=== PATIENT | male | born 1945 | race Caucasian/White ===

== ENCOUNTER → 2018-03-07 13:49 | Outpatient (CLI) | payer MEDICARE, OTHER, SELFPAY ==
--- NOTE | 2018-03-07 | DI.ECHO.S_ITS ---
[place] [facility] +---------+ : : [address] : : : : [id number] : : : : Phone: [phone] Echocardiogram Report + + :Name: CHITO LAM Study Date: 03/07/2018 Height: 71 in : :[facility] Exam Location: IS Weight: 167 lb : : Gender: Male BSA: 2.0 m2 : :: 1945 Age: 73 yrs BP: 120/65 mmHg: :Reason For Study: Complete Heart Block : :Ordering Physician: Dr. Mere Gautamformed By: Rachel Page : + + Interpretation Summary The left ventricle is normal in size. The ejection fraction is estimated to be 60-65%. The right ventricle is mildly dilated. The right ventricular systolic function is normal. There is a pacemaker lead in the right ventricle. There is mild tricuspid regurgitation. Compared to the prior echo exam, there has been a decrease in TR severity. The right ventricular systolic pressure is estimated at 20 mmHg assuming a right atrial pressure of 3 mm Hg. Procedure: A two-dimensional transthoracic echocardiogram with color flow and Doppler was performed. The study quality was technically adequate. Comparison is made with the echocardiogram of 06/11/2012. The patient has a paced rhythm. Left Ventricle: The left ventricle is normal in size. Left ventricular wall thickness is normal. There is no thrombus. The ejection fraction is estimated to be 60-65%. There has been no significant change since the previous study. There is a mild dyssynchronous contraction pattern due to the paced rhythm. Assessment of diastolic parameters indicates a relaxation abnormality of the left ventricle, consistent with normal filling pressures. Right Ventricle: The right ventricle is mildly dilated. There is a pacemaker lead in the right ventricle. The right ventricular systolic function is normal. Atria: The left atrium is mildly dilated. The left atrium has remained unchanged in size since the prior echo exam. Right atrial size is normal. There is no Doppler evidence for an interatrial shunt. Mitral Valve: The mitral valve leaflets are slightly calcified. There is trace mitral regurgitation. Aortic Valve: The aortic valve is trileaflet. The aortic valve opens well. The aortic valve is slightly calcified. There is no aortic valve stenosis. There is trace aortic regurgitation. Tricuspid Valve: The tricuspid valve is normal in structure and function. There is mild tricuspid regurgitation. Compared to the prior echo exam, there has been a decrease in TR severity. The right ventricular systolic pressure is estimated at 20 mmHg assuming a right atrial pressure of 3 mm Hg. Pulmonic Valve: The pulmonic valve is not well visualized. There is trace pulmonic regurgitation. Great Vessels: The aortic root is normal size. The ascending aorta is mildly enlarged. The aortic arch could not be visualized. The pulmonary artery is normal size. The IVC is of normal diameter and collapses greater than 50% with a sniff. This suggests a low right atrial pressure of 3 mm Hg. Pericardium/ Pleura There is no pericardial effusion. There is no pleural effusion. MMode/2D Measurements & Calculations LVIDd: 5.0 cm Ao root diam: 3.5 cm LVIDs: 3.1 cm asc Aorta Diam: 3.6 cm FS: 39.0 % EPSS: 0.45 cm IVSd: 0.86 cm LVPWd: 0.72 cm LV jarquin. diameter/BSA (cm/m^2): 2.6 LV sys. diameter/BSA (cm/m^2): 1.6 LA A2 area: 22.4 cm2 RA long axis: 5.4 cm LA A4 area: 21.5 cm2 RA area: 18.8 cm2 LA length (vol): 6.0 cm RA vol: 55.7 ml LA vol: 68.1 ml RA : 28.5 ml/m2 LA vol index: 34.9 ml/m2 IVC diam: 1.9 cm RVD1 (basal): 4.5 cm Doppler Measurements & Calculations Ao V2 max: 142.5 cm/sec LVOT Max Manny: 95.8 cm/sec Ao V2 mean: 96.0 cm/sec LV V1 max P.7 mmHg Ao max P.1 mmHg LV V1 VTI: 17.0 cm Ao mean P.2 mmHg sev ratio: 0.68 Ao V2 VTI: 25.0 cm MV E max manyn: 49.4 cm/sec TR max manny: 204.8 cm/sec MV A max manny: 72.2 cm/sec TR max P.8 mmHg MV E/A: 0.68 PA V2 max: 84.1 cm/sec Med Peak E' Manny: 5.6 cm/sec PA V2 mean: 59.1 cm/sec E/E' med: 8.9 PA mean P.6 mmHg Lat Peak E' Manny: 7.8 cm/sec PA Accel Time: 0.13 sec E/E' lat: 6.3 E/e' average: 7.6 MV dec time: 0.18 sec MV P1/2t: 52.9 msec MV P1/2t max manny: 49.1 cm/sec MVA(2t): 4.2 cm2 Reading Physician:DANIEL
== END ==
PROVIDERS: PCP Family Medicine; Visit Provider Internal Medicine Cardiovascular Disease
DX: I44.2 Atrioventricular block, complete (principal); I07.1 Rheumatic tricuspid insufficiency; Z95.0 Presence of cardiac pacemaker
CPT/HCPCS: 93306

== ENCOUNTER → 2019-01-16 09:09 | Outpatient (CLI) | payer MEDICARE, OTHER, SELFPAY ==
--- NOTE | 2019-01-16 | DI.CT.S_ITS ---
PROCEDURE: CT CERVICAL SPINE WO CON INDICATIONS: CEREBROCASCULAR ACCIDENT TECHNIQUE: Noncontrast 3 mm thick sections acquired from the skull base to the T4 level. Sagittal and coronal reformats were then constructed. For radiation dose reduction, the following was used: automated exposure control, adjustment of mA and/or kV according to patient size. COMPARISON: None. FINDINGS: Image quality: Excellent. Bones: No fractures or dislocations. Visualized superior ribs are intact. Straightening of the normal cervical lordosis. Diffuse osteopenia. Multilevel degenerative endplate sclerosis and spurring. Diffuse facet arthropathy. Moderate narrowing of the C6-C7 and C7-T1 disc spaces. Mild narrowing of the C2-C3 disc space. Carotid atherosclerotic plaques incidentally noted. Chronic ossification seen in the posterior paraspinal soft tissues at the level of C5-C6. Upper thoracic discogenic change is also noted. Soft tissues: Prevertebral soft tissues are normal in thickness. No paravertebral hematomas. No apical pneumothoraces. IMPRESSION: No fracture. Chronic degenerative changes as above. Carotid atherosclerotic disease. Dictated by: Osmel Calloway M.D. on 01/16/2019 at 10:07 Approved by: Osmel Calloway M.D. on 01/16/2019 at 10:13
--- NOTE | 2019-01-16 09:17 | DI.CT.S_ITS ---
PROCEDURE: CT HEAD/BRAIN WO CON INDICATIONS: CEREBROCASCULAR ACCIDENT TECHNIQUE: Noncontrast 4.5 mm thick angled axial sections acquired from the foramen magnum to the vertex, with coronal and sagittal reformats. For radiation dose reduction, the following was used: automated exposure control, adjustment of mA and/or kV according to patient size. COMPARISON: [facility], , C-SPINE WITHOUT CONTRAST, 08/26/2010, 17:59. FINDINGS: Image quality: Excellent. CSF spaces: Basal cisterns are patent. No extra-axial fluid collections. The lateral ventricles are enlarged however this could be ex vacuo appearance given the prominence of the sylvian fissures, recommend clinical correlation given the absence of prior head CT. Brain: No intracranial bleeds or masses. There is cerebral volume loss for age, with resultant ventricular and sulcal prominence. There are periventricular and deep white matter chronic small vessel ischemic changes. There is intracranial internal carotid artery atherosclerosis. Skull and face: Calvarium and visualized facial bones appear intact, without suspicious lesions. Sinuses: Near-complete opacification of the left maxillary sinus. There is also right maxillary sinus disease. Bilateral ethmoid air cell opacification. Mastoids clear.. IMPRESSION: Enlargement of the lateral ventricles likely due to ex vacuo changes although given the absence of any prior head CT recommend clinical correlation. Elsewhere no acute intracranial process. Bilateral maxillary and ethmoid air cell sinus disease. Areas of increased attenuation seen within the left maxillary antrum raise the possibility of fungal etiology. Please correlate clinically and if necessary ENT consultation. Chronic senescent changes as above. Dictated by: Osmel Calloway M.D. on 01/16/2019 at 10:14 Approved by: Osmel Calloway M.D. on 01/16/2019 at 10:23
== END ==
PROVIDERS: PCP Internal Medicine; Visit Provider Internal Medicine
DX: I63.9 Cerebral infarction, unspecified (principal); J32.8 Other chronic sinusitis; I65.29 Occlusion and stenosis of unspecified carotid artery; M47.812 Spondylosis without myelopathy or radiculopathy, cervical region
CPT/HCPCS: 70450; 72125

== ENCOUNTER → 2019-01-28 15:18 | Outpatient (CLI) | payer MEDICARE, OTHER, SELFPAY ==
--- NOTE | 2019-01-28 | DI.RAD.S_ITS ---
PROCEDURE: XR HIP W PEL IF DONE BILAT 2V INDICATIONS: Right HIP PAIN TECHNIQUE: AP pelvis with lateral view(s) of the bilateral hip(s). COMPARISON: None. FINDINGS: Bones: No fractures or dislocations. Pelvic ring appears intact. No suspicious bony lesions. Soft tissues: The visualized bowel gas pattern is normal. Minor enthesopathy at the right greater trochanter. No suspicious soft tissue calcifications. IMPRESSION: Slight calcification of the right greater trochanter may indicate calcific tendinitis. Otherwise normal bilateral hips. Dictated by: Shital Scales M.D. on 01/28/2019 at 16:59 Approved by: Shital Scales M.D. on 01/28/2019 at 17:00
== END ==
PROVIDERS: PCP Internal Medicine; Visit Provider Internal Medicine
DX: M25.551 Pain in right hip (principal)
CPT/HCPCS: 73521

== ENCOUNTER 2019-04-17 06:51 | Day surgery (SDC) | payer MEDICARE, OTHER, SELFPAY ==
[2019-04-17] VITALS (7 sets, daily range): BP systolic 85–117; BP diastolic 52–81; PULSE 18–66; RESP 10–16; TEMP 36.4–36.7; O2SAT 89–99; BMI 25.1
--- NOTE | 2019-04-17 | PATH_ITS ---
[facility] Accession Number: [id number] . 01 Material submitted: . PART A: cecum - CECAL POLYP BIOPSY PART B: sigmoid colon - SIGMOID POLYP BIOPSY . 02 Diagnosis: A. Biopsy, Cecal Polyp: Sessile serrated adenoma. . B. Biopsy, Sigmoid Colon Polyp: Mixed tubular and villiform adenoma involving both biopsy fragments. MRV/04/18/2019 . 02 Electronically signed: . Jamal Rogers MD, Pathologist NPI- [id number] . 01 Gross description: . Part A: CECAL POLYP BIOPSY: Received in formalin is 1 fragment(s) of sharpe, soft tissue measuring 0.3 x 0.2 x 0.2 cm which is entirely submitted and submitted entirely in 1 cassette(s) Part B: SIGMOID POLYP BIOPSY: Received in formalin are 2 fragment(s) of sharpe, soft tissue measuring 0.2 x 0.2 x 0.2 cm to 0.3 x 0.3 x 0.2 cm which is entirely submitted and submitted entirely in 1 cassette(s) /DMC /DMC . 02 Pathologist provided ICD-10: D12.0 . 02 CPT . 116208, [id number] Performed at: 01 [facility] [address], [place], [place] [id number] MD Pino Pearson MD Phone: [phone] Performed at: 02 [facility] [address] [place], [place] [id number] MD Jasmin Collier MD Phone: [phone]
[2019-04-17] MEDS: SODIUM CHLORIDE 0.9% 1,000 ML 100 ML IV (07:20)
--- NOTE | 2019-04-17 08:48 | PM.HP.1 ---
History of Present Illness Date Patient Seen: 04/17/19 Time Patient Seen: 08:48 Chief complaint: [id number] Narrative: History of colon polyps Patient History Family & Social History Social History: household members spouse Tobacco & Substance use: Smoking Status Never smoker Meds Home Medications Medication Instructions Recorded Confirmed Type tamsulosin 0.4 mg capsule 0.4 mg PO QDAY #90 cap 07/30/18 04/17/19 Rx simvastatin 40 mg tablet 20 mg PO QPM tab 01/05/19 04/17/19 History Allergies Allergy/AdvReac Type Severity Reaction Status Date / Time No Known Allergies Allergy Mild Uncoded 04/17/19 07:01 Exam Vital Signs (past 8 hours): - 04/17/19 07:13 Temperature 98.1 F Pulse Rate 62 Respiratory Rate 15 Blood Pressure 117/81 Pulse Oximetry 94 Oxygen Delivery Method Room Air Narrative Exam Narrative: Oropharynx free of lesions Chest clear to auscultation percussion Cardiac exam reveals no S3 or murmur Assessment & Plan Assessment & Plan narrative: History of colon polyps and family history of colon cancer in a daughter in her 40s who from colorectal cancer, Need for follow-up colonoscopy Risks, benefits, alternatives have been explained. Patient left colonoscopy set up today.
--- NOTE | 2019-04-17 08:49 | PM.OP.ENDO ---
Operative Date/Time/Diagnoses Date of procedure: 04/17/19 Time of procedure: 08:50 Pre-op diagnosis: Personal history of colon polyps and family history of colon cancer in a daughter in her 40s Procedure & Clinicians Study performed: Colonoscopy Same procedure as scheduled: Yes Indications: Personal history of colon polyps and family history of colon cancer in daughter age 40s Surgeon: Fatoumata Henriquez Procedure Notes Procedure in detail: After informed consent was obtained the patient was placed in left lateral decubitus position. The video colonoscope was introduced the rectum and slowly advanced to cecum. Preparation was good. On slow withdrawal mucosa was carefully examined. The scope was removed. The patient tolerated the procedure well Blood loss none Complications none Sedation Total sedation time 23 minutes Versed 4 mg fentanyl 100 mg IV titration Findings 1. 4 mm cecal polyp Jumbo biopsy removed completely 2. 8 mm semi pedunculated polyp in the sigmoid colon snared and removed completely 3. Otherwise negative colonoscopy to cecum Patient will need follow-up colonoscopy in 5 years.
[2019-04-17] MEDS: MIDAZOLAM 5 MG/5 ML VIAL IV (08:50)
[2019-04-17] MEDS: fentaNYL 250 MCG/5 ML INJ IV (08:51)
== END 2019-04-17 10:08 | disposition home or self-care (01) ==
PROVIDERS: PCP Internal Medicine; Visit Provider Internal Medicine Gastroenterology
PROC: 0DJD8ZZ Inspection of Lower Intestinal Tract, Via Natural or Artificial Opening Endoscopic (ICD-10-PCS; CPT 45378; principal; 2019-04-17 08:30)
DX: Z86.010 Personal history of colon polyps (principal); Z80.0 Family history of malignant neoplasm of digestive organs; D12.0 Benign neoplasm of cecum
CPT/HCPCS: 45380; 88305; J2250; J3010

== ENCOUNTER → 2020-01-28 07:06 | Outpatient (CLI) | payer MEDICARE, OTHER, SELFPAY ==
[2020-01-28 08:04] LABS: Aspartate Aminotransferase 29 IU/L (17-59); BUN Creatinine Ratio 24.7 (6-22); Blood Urea Nitrogen 19 mg/dL (9-20); Calcium 9.4 mg/dL (8.4-10.2); Carbon Dioxide 27 mmol/L (22-32); Chloride 105 mmol/L (98-107); Cholesterol 189 mg/dL (140-199); Estimated Glomerular Filt Rate > 60.0 mL/min (>60); Glucose 110 mg/dL (80-110); HDL Cholesterol 48 mg/dL (40-60); HEMOLYSIS < 15 (0-50); LDL Cholesterol Calculated 111 mg/dL (<100); Potassium 4.3 mmol/L (3.4-5.1); Sodium 139 mmol/L (137-145); Triglycerides 150 mg/dL (35-150)
[2020-01-28 08:34] LABS: Prostate Specific Antigen Scrn 1.51 ng/mL (0.1-4.0)
== END ==
PROVIDERS: PCP Internal Medicine; Referring Provider Internal Medicine; Visit Provider Internal Medicine
DX: N40.1 Benign prostatic hyperplasia with lower urinary tract symptoms (principal); E78.2 Mixed hyperlipidemia
CPT/HCPCS: 36415; 80048; 80061; 84450; G0103

== ENCOUNTER → 2020-06-16 14:35 | Outpatient (CLI) | payer MEDICARE, OTHER, SELFPAY ==
--- NOTE | 2020-06-16 | DI.CT.S_ITS ---
PROCEDURE: CT HEAD/BRAIN WO CON INDICATIONS: PRESENCE OF CEREBROSPINAL FLUID DRAINAGE DEVICE TECHNIQUE: Noncontrast 4.5 mm thick angled axial sections acquired from the foramen magnum to the vertex, with coronal and sagittal reformats. For radiation dose reduction, the following was used: automated exposure control, adjustment of mA and/or kV according to patient size. COMPARISON: [facility], CT, CT HEAD/BRAIN WO CON, 01/16/2019, 9:25. [facility], [place] CSF CISTERNOGRAM, 02/04/2019, 13:04. FINDINGS: Image quality: Excellent. CSF spaces: A right frontal approach ventriculostomy catheter has been placed. The tip is seen within the 3rd ventricle. The lateral ventricles are again seen to be abnormally prominent, right slightly larger than left. The size and shape of the ventricles is not significantly changed compared to the 01/16/2019 examination. Basal cisterns are patent. No extra-axial fluid collections. Brain: No intracranial bleeds or masses. There is cerebral volume loss for age, with resultant ventricular and sulcal prominence. There are periventricular and deep white matter chronic small vessel ischemic changes. There is intracranial internal carotid artery atherosclerosis. Skull and face: Calvarium and visualized facial bones appear intact, without suspicious lesions. Sinuses: Moderate mucosal thickening is seen within the ethmoid air cells. Moderate mucosal thickening is seen within the left maxillary sinus. Paranasal sinus disease is clearly improved compared to the prior examination. No abnormal fluid is seen within the mastoid air cells. IMPRESSION: Interval placement of a right frontal approach ventriculostomy catheter, with the tip within the 3rd ventricle. The size and shape of the lateral ventricles are not significantly changed compared to the preoperative CT. Improved paranasal sinus disease is noted. Dictated by: Jigar Flores M.D. on 06/16/2020 at 14:00 Approved by: Jigar Flores M.D. on 06/16/2020 at 14:03
== END ==
PROVIDERS: PCP Internal Medicine; Referring Provider Physician Assistant; Visit Provider Physician Assistant
DX: Z45.41 Encounter for adjustment and management of cerebrospinal fluid drainage device (principal); Z98.2 Presence of cerebrospinal fluid drainage device; I65.29 Occlusion and stenosis of unspecified carotid artery
CPT/HCPCS: 70450

== ENCOUNTER → 2020-09-23 08:02 | Outpatient (CLI) | payer MEDICARE, OTHER, SELFPAY ==
--- NOTE | 2020-09-23 08:28 | DI.CT.S_ITS ---
PROCEDURE: CT HEAD/BRAIN WO CON INDICATIONS: (Idiopathic) normal pressure hydrocephalus TECHNIQUE: Noncontrast 4.5 mm thick angled axial sections acquired from the foramen magnum to the vertex, with coronal and sagittal reformats. For radiation dose reduction, the following was used: automated exposure control, adjustment of mA and/or kV according to patient size. COMPARISON: [facility], CT, CT HEAD/BRAIN WO CON, 06/16/2020, 14:42. FINDINGS: Image quality: Excellent. CSF spaces: A ventriculostomy catheter is again noted to enters through a right frontal defect and coarse to the region of the foramen of Monro. Ventricular size is unchanged with mild diffuse ventriculomegaly, asymmetrically larger on the right than the left. Basal cisterns are patent. No extra-axial fluid collections. Brain: No intracranial bleeds or masses. There is cerebral volume loss for age, with resultant ventricular and sulcal prominence. There are moderate periventricular and deep white matter chronic small vessel ischemic changes. There is intracranial internal carotid artery atherosclerosis. Skull and face: Calvarium and visualized facial bones appear intact, without suspicious lesions. Sinuses: Continue to subtotal opacification of the ethmoids. Suspect possible bilateral nasal polyps. Bilateral maxillary sinus mucosal thickening and left maxillary sinus mucous retention cyst. IMPRESSION: 1. Unchanged appearance of ventriculostomy catheter. Unchanged asymmetric mild ventriculomegaly. 2. Age-related volume loss and moderate small vessel ischemic change. 3. No evidence acute stroke, hemorrhage, or mass. 4. Unchanged subtotal opacification of the ethmoids. Suspect underlying nasal polyps. Dictated by: Manav Garcia M.D. on 09/23/2020 at 9:26 Approved by: Manav Garcia M.D. on 09/23/2020 at 9:33
== END ==
PROVIDERS: PCP Internal Medicine; Referring Provider Internal Medicine; Visit Provider Psychiatry & Neurology Neurology
DX: G91.2 (Idiopathic) normal pressure hydrocephalus (principal); Z98.2 Presence of cerebrospinal fluid drainage device
CPT/HCPCS: 70450

== ENCOUNTER → 2020-12-18 07:37 | Outpatient (CLI) | payer MEDICARE, OTHER, SELFPAY ==
[2020-12-18 09:50] LABS: Aspartate Aminotransferase 35 IU/L (17-59); BUN Creatinine Ratio 23.8 (6-22); Blood Urea Nitrogen 20 mg/dL (9-20); Calcium 9.5 mg/dL (8.4-10.2); Carbon Dioxide 26 mmol/L (22-32); Chloride 103 mmol/L (98-107); Cholesterol 159 mg/dL (140-199); Estimated Glomerular Filt Rate > 60.0 mL/min (>60); Glucose 106 mg/dL (80-110); HDL Cholesterol 50 mg/dL (40-60); HEMOLYSIS < 15 (0-50); LDL Cholesterol Calculated 77 mg/dL (<100); Potassium 4.1 mmol/L (3.4-5.1); Sodium 138 mmol/L (137-145); Triglycerides 161 mg/dL (35-150)
[2020-12-18 10:19] LABS: Prostate Specific Antigen 1.42 ng/mL (0.10-4.00)
== END ==
PROVIDERS: PCP Internal Medicine; Referring Provider Internal Medicine; Visit Provider Internal Medicine
DX: N40.1 Benign prostatic hyperplasia with lower urinary tract symptoms (principal); E78.2 Mixed hyperlipidemia
CPT/HCPCS: 36415; 80048; 80061; 84153; 84450

== ENCOUNTER → 2021-02-01 19:51 | Outpatient (ROUT) | payer MEDICARE, OTHER, SELFPAY ==
[2021-02-01 21:33] LABS: TSH w/ Reflex to FT4 1.22 uIU/mL (0.47-4.68)
[2021-02-02 06:52] LABS: Hemoglobin A1C% w Est Avg Glu 5.7 % (4.0-6.0)
[2021-02-03 10:32] LABS: Var-Zoster Immunity Screen 1169 index (Immune >165)
== END ==
PROVIDERS: PCP Internal Medicine; Visit Provider Internal Medicine
DX: Z20.9 Contact with and (suspected) exposure to unspecified communicable disease (principal); E03.9 Hypothyroidism, unspecified; R73.01 Impaired fasting glucose
CPT/HCPCS: 83036; 84443; 86787

== ENCOUNTER → 2022-01-06 12:02 | Outpatient (CLI) | payer MEDICARE, OTHER, SELFPAY ==
[2022-01-06 13:01] LABS: Add Manual Diff / Slide Review NO; Basophils Absolute Auto 0 /uL (0-100); Basophils Percent Auto 0.5 % (0-2); Eosinophils Absolute Auto 400 /uL (0-450); Eosinophils Percent Auto 5.8 % (2-4); Hematocrit 45.7 % (41-53); Hemoglobin 15.6 g/dL (13.5-17.5); Lymphocytes Absolute Auto 2000 /uL (1100-4500); Lymphocytes Percent Auto 29.3 % (25-40); Mean Corpuscular HGB Conc 34.1 % (30-36); Mean Corpuscular Hemoglobin 30.4 PG (26-34); Mean Corpuscular Volume 89.3 fL (80-100); Monocytes Absolute Auto 900 /uL (0-900); Monocytes Percent Auto 13.5 % (3-14); Neutrophils Absolute Auto 3500 /uL (1500-7000); Neutrophils Percent Auto 50.9 % (50-75); Platelet Count 170 X10^3/uL (150-400); Red Blood Cell Count 5.12 X10^6/uL (4.5-5.9); Red Cell Distribution Width 12.9 % (11.6-14.8); White Blood Cell Count 6.9 X10^3/uL (4.5-11.0)
[2022-01-06 13:27] LABS: Alanine Aminotransferase 33 IU/L (<50); Albumin 4.8 g/dL (3.5-5.0); Albumin Globulin Ratio 1.6 (1.0-2.8); Alkaline Phosphatase 68 U/L (38-126); Aspartate Aminotransferase 36 IU/L (17-59); BUN Creatinine Ratio 23.6 (6-22); Bilirubin Total 0.6 mg/dL (0.2-1.3); Blood Urea Nitrogen 21 mg/dL (9-20); Carbon Dioxide 31 mmol/L (22-32); Chloride 103 mmol/L (98-107); Cholesterol 173 mg/dL (140-199); Estimated Glomerular Filt Rate > 60 mL/min (>60); Glucose 96 mg/dL (80-110); HDL Cholesterol 58 mg/dL (40-60); HEMOLYSIS < 15 (0-50); LDL Cholesterol Calculated 82 mg/dL (<100); Potassium 4.3 mmol/L (3.4-5.1); Sodium 138 mmol/L (137-145); Total Protein 7.8 g/dL (6.3-8.2); Triglycerides 165 mg/dL (35-150)
[2022-01-06 13:50] LABS: Prostate Specific Antigen 1.59 ng/mL (0.10-4.00)
[2022-01-06 13:51] LABS: TSH w/ Reflex to FT4 1.82 uIU/mL (0.47-4.68)
== END ==
PROVIDERS: PCP Internal Medicine; Referring Provider Internal Medicine; Visit Provider Internal Medicine
DX: E78.2 Mixed hyperlipidemia (principal); N40.1 Benign prostatic hyperplasia with lower urinary tract symptoms; G91.2 (Idiopathic) normal pressure hydrocephalus
CPT/HCPCS: 36415; 80053; 80061; 84153; 84443; 85025

== ENCOUNTER 2022-11-24 09:29 | Emergency (ER) | payer MEDICARE, OTHER, SELFPAY ==
--- NOTE | 2022-11-24 09:37 | DI.RAD.S_ITS ---
PROCEDURE: XR KNEE LT 4V INDICATIONS: knee pain TECHNIQUE: 3 views of the knee were acquired. COMPARISON: None. FINDINGS: Bones: Postoperative changes of unicondylar medial joint space arthroplasty without complication. No fractures or dislocations. No suspicious bony lesions. Soft tissues: No joint effusion. No suspicious soft tissue calcifications. IMPRESSION: Unicondylar medial joint space arthroplasty without complication. Dictated by: Quentin Chaparro M.D. on 11/24/2022 at 10:11 Approved by: Quentin Chaparro M.D. on 11/24/2022 at 10:12
--- NOTE | 2022-11-24 09:38 | ED.GENADULT ---
HPI - General Adult General Chief complaint: Extremity Problem,Nontraumatic Stated complaint: can't walk at night T-30 LT knee hurts leg tired Time Seen by Provider: 11/24/22 09:33 History of Present Illness HPI narrative: 77-year-old male presenting with pain localized to the left knee that has been present for approximately 1 month. Patient does continue to be able to ambulate, however, patient reports pain localized to the anterior aspect of the left lower extremity that is immediately proximal to the left knee. No significant swelling noted. No trauma. No fevers or redness. Patient reports no significant change in his activity apart from decreasing is amount of walking secondary to pain over the last month. Related Data Previous Rx's Medication Instructions Recorded rosuvastatin 20 mg tablet (Crestor) 20 mg PO DAILY #90 tabs 05/16/22 Allergies Allergy/AdvReac Type Severity Reaction Status Date / Time No Known Drug Allergies Allergy Verified 11/24/22 09:42 Patient History Medical History Benign prostatic hyperplasia with lower urinary tract symptoms (09/06/16) BPH (benign prostatic hyperplasia) (Unknown) Encounter for general adult medical examination without abnormal findings History of colonic polyps Hyperlipidemia (Unknown) Kidney stones Mixed hyperlipidemia Neurological disease NPH (normal pressure hydrocephalus) Osteoarthritis of left hip Pacemaker (06/2012) Presence of cardiac pacemaker (07/07/15) Secondhand smoke exposure Surgical History H/O circumcision History of cystoscopy History of knee replacement History of liver biopsy History of partial knee replacement S/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 Nursing note reviewed Constitutional: interactive HENT: Moist mucous membranes EYES: No scleral icterus NECK: no masses CV: Well perfused peripherally, no cyanosis present PULM: Unlabored respirations, symmetric chest rise ABD: Non-distended MS: No gross deformities, no asymmetric edema noted, range of motion is nonirritable, no significant swelling noted, no erythema noted, patient is able to raise the leg off the bed without difficulty SKIN: Warm and dry. PSYCH: Appropriate affect NEURO: Follows simple commands, moves extremities, interactive with exam Initial Vital Signs Initial Vital Signs: Vital Signs Temperature 98.3 F 11/24/22 09:39 Pulse Rate 72 11/24/22 09:39 Respiratory Rate 16 11/24/22 09:39 Blood Pressure 168/73 H 11/24/22 09:39 Pulse Oximetry 98 11/24/22 09:39 Oxygen Delivery Method Room Air 11/24/22 09:39 Course Orders Ordered: ED Orders 11/24/22 09:37 XR knee LT 4V Stat Medical Decision Making [facility] Narrative Medical decision making narrative: 77-year-old male presenting with left knee pain that has been present for the last month. On presentation, vital signs reassuring. Physical exam notable for well-appearing 69-year-old male who is in no acute distress, reassuring cardiopulmonary exam, MSK exam notable for no evidence of irritability with range of motion, no gross deformities, no significant swelling or fluid. Initial concern for osteoarthritis, occult fracture, hardware malposition, ligamentous strain, ligament disruption, mass lesion. Patient has no evidence of septic arthritis on bedside exam or by history, further evaluation for this diagnosis was deferred. Patient has no evidence of complete tendon disruption given his ability to ambulate and raised leg off the bed, no evidence of trauma. X-ray obtained and notable for no evidence of acute pathology. Discussed findings with patient at bedside. Discussed plan for supportive cares and close outpatient follow up. Discussed further evaluation with MR imaging if symptoms do not resolve. Return precautions discussed. Discharge Plan Departure Patient Disposition: Home Clinical Impression: Acute knee pain Activity Restrictions/Additional Instructions: *You have been diagnosed with left knee pain *What to do: Please follow up in the outpatient setting with her primary care provider, as discussed, he will likely require additional imaging if you continue to have symptoms. *Please follow up with your primary care provider in 2-3 days, call for an appointment. Let them know you were seen in the Emergency Department and that we ask that you be seen in follow up. We will electronically transmit a record of today's note if your PCP is in our system. Prescriptions: No Action rosuvastatin [Crestor] 20 mg tablet 20 mg PO DAILY Qty: 90 2RF Referrals: Geoff Morrissey MD [Primary Care Provider] - Stand Alone Forms: Patient Portal/API
[2022-11-24 09:39] VITALS: BP 168/73; PULSE 72; RESP 16; TEMP 36.8; O2SAT 98; BMI 24.0
--- NOTE | 2022-11-24 10:17 | PC.NURSE ---
pt states he woke up with pain, was fine prior to bed the night before. has taken ibuprofen and voltaren gel which did help. pain gets worse through the day but is okay in the morning. call light placed within reach. explanation of waiting for imaging given to patient. encouraged to use call mccabe for any needs.
== END 2022-11-24 11:13 | disposition home or self-care (01) ==
PROVIDERS: Emergency Provider Emergency Medicine; PCP Internal Medicine
DX: M25.562 Pain in left knee (principal)
CPT/HCPCS: 73564; 99283

== ENCOUNTER → 2023-01-11 08:13 | Outpatient (CLI) | payer MEDICARE, OTHER, SELFPAY ==
[2023-01-11 09:16] LABS: Hematocrit 44.7 % (41-53); Hemoglobin 15.5 g/dL (13.5-17.5); Mean Corpuscular HGB Conc 34.7 % (30-36); Mean Corpuscular Hemoglobin 30.9 PG (26-34); Mean Corpuscular Volume 89.1 fL (80-100); Platelet Count 188 X10^3/uL (150-400); Red Blood Cell Count 5.01 X10^6/uL (4.5-5.9); Red Cell Distribution Width 12.8 % (11.6-14.8); White Blood Cell Count 7.5 X10^3/uL (4.5-11.0)
[2023-01-11 10:00] LABS: Alanine Aminotransferase 38 IU/L (<50); Albumin 4.4 g/dL (3.5-5.0); Albumin Globulin Ratio 1.5 (1.0-2.8); Alkaline Phosphatase 64 U/L (38-126); Aspartate Aminotransferase 39 IU/L (17-59); BUN Creatinine Ratio 24.4 (6-22); Blood Urea Nitrogen 21 mg/dL (9-20); Calcium 9.2 mg/dL (8.4-10.2); Carbon Dioxide 28 mmol/L (22-32); Chloride 102 mmol/L (98-107); Cholesterol 180 mg/dL (140-199); Estimated Glomerular Filt Rate > 60 mL/min (>60); Globulin 2.9 g/dL (1.7-4.1); Glucose 99 mg/dL (80-110); HDL Cholesterol 63 mg/dL (40-60); HEMOLYSIS < 15 (0-50); LDL Cholesterol Calculated 94 mg/dL (<100); Potassium 4.4 mmol/L (3.4-5.1); Sodium 138 mmol/L (137-145); Total Protein 7.3 g/dL (6.3-8.2); Triglycerides 117 mg/dL (35-150)
[2023-01-11 10:25] LABS: TSH w/ Reflex to FT4 1.97 uIU/mL (0.47-4.68)
[2023-01-11 10:26] LABS: Prostate Specific Antigen 1.92 ng/mL (0.10-4.00)
== END ==
PROVIDERS: PCP Internal Medicine; Referring Provider Internal Medicine; Visit Provider Internal Medicine
DX: E78.2 Mixed hyperlipidemia (principal); N40.1 Benign prostatic hyperplasia with lower urinary tract symptoms; Z95.0 Presence of cardiac pacemaker; I45.9 Conduction disorder, unspecified
CPT/HCPCS: 36415; 80053; 80061; 84153; 84443; 85027

== ENCOUNTER 2023-03-01 07:47 | Day surgery (SDC) | payer MEDICARE, OTHER, SELFPAY ==
[2023-03-01 08:15] VITALS: BP 143/75; PULSE 63; RESP 18; TEMP 36.2; O2SAT 96; BMI 25.1
[2023-03-01] MEDS: LACTATED RINGERS 1,000 ML 42 ML IV (08:32)
--- NOTE | 2023-03-01 08:34 | PM.HP.1 ---
History of Present Illness History of Present Illness Date Patient Seen: 03/01/23 Chief complaint: Colonoscopy Narrative: Personal history of colon polyps PFSH Medical History Benign prostatic hyperplasia with lower urinary tract symptoms (09/06/16) BPH (benign prostatic hyperplasia) (Unknown) Heart block History of colonic polyps Hyperlipidemia (Unknown) Kidney stones Mixed hyperlipidemia Neurological disease NPH (normal pressure hydrocephalus) Osteoarthritis of left hip Pacemaker (06/2012) Presence of cardiac pacemaker (07/07/15) Secondhand smoke exposure Surgical History H/O circumcision History of cystoscopy History of knee replacement History of liver biopsy History of partial knee replacement 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 Family History Father Myocardial infarction acute Social History marital status: number of children: 2 household members: spouse Smoking Status: Never smoker alcohol intake: current caffeine: Yes Meds Home Medications and Allergies Home Medications Medication Instructions Recorded Confirmed Type rosuvastatin 20 mg tablet (Crestor) 20 mg PO DAILY #90 tabs 01/09/23 03/01/23 Rx acetaminophen 325 mg capsule 650 mg PO Q6H PRN pain 03/01/23 03/01/23 History (Tylenol) Allergies Allergy/AdvReac Type Severity Reaction Status Date / Time No Known Drug Allergies Allergy Verified 03/01/23 08:12 Exam Vital Signs (past 8 hours): - 03/01/23 08:15 Temperature 97.1 F L Pulse Rate 63 Respiratory Rate 18 Blood Pressure 143/75 H Pulse Oximetry 96 Oxygen Delivery Method Room Air Oxygen Delivery Method Room Air Narrative Exam Narrative: Oropharynx free of lesions Chest clear to auscultation percussion Cardiac exam reveals no S3 or murmur Assessment & Plan Assessment & Plan narrative: Personal history of colon polyps need for follow-up colonoscopy. Risks, benefits, alternatives have been explained.
--- NOTE | 2023-03-01 08:35 | PM.OP.COLON ---
Operative Date/Time/Diagnoses Date of procedure: 03/01/23 Pre-op diagnosis: See indication and findings Procedure & Clinicians Study performed: Colonoscopy Indications: History of colon polyps Surgeon: Fatoumata Henriquez Procedure Notes Procedure in detail: After informed consent was obtained the patient was placed in left lateral decubitus position. The video colonoscope was introduced the rectum slowly advanced cecum. On slow withdrawal mucosa was carefully examined. The scope was removed. The patient tolerated procedure well. Preparation was good. Blood loss none Complications none Sedation mac Findings 1. Normal colonoscopy to cecum This should be Mr. Davalos please last colonoscopy. He will follow up routinely with primary care/cardiology
[2023-03-01 09:32] VITALS: BP 123/76; PULSE 62; RESP 17; TEMP 36.3; O2SAT 96
[2023-03-01 09:37] VITALS: BP 126/82; PULSE 61; RESP 10; TEMP 36.3; O2SAT 97
[2023-03-01 09:42] VITALS: BP 118/77; PULSE 67; RESP 16; TEMP 36.3; O2SAT 98
[2023-03-01 09:49] VITALS: BP 127/83; PULSE 61; RESP 14; TEMP 36.4; O2SAT 99
== END 2023-03-01 10:00 | disposition home or self-care (01) ==
PROVIDERS: PCP Internal Medicine; Referring Provider Internal Medicine Gastroenterology; Visit Provider Internal Medicine Gastroenterology
PROC: 0DJD8ZZ Inspection of Lower Intestinal Tract, Via Natural or Artificial Opening Endoscopic (ICD-10-PCS; CPT 45378; principal; 2023-03-01 09:00)
DX: Z12.11 Encounter for screening for malignant neoplasm of colon (principal); Z86.010 Personal history of colon polyps
CPT/HCPCS: G0105

== ENCOUNTER → 2023-05-08 10:39 | Outpatient (CLI) | payer MEDICARE, OTHER, SELFPAY ==
--- NOTE | 2023-05-08 10:40 | DI.NM.S_ITS ---
PROCEDURE: NM BONE SCAN WHOLE BODY RADIOPHARMACEUTICAL: 21.5 mCi Tc-99m MDP IV. INDICATIONS: ATYPICAL LEFT HIP PAIN TECHNIQUE: Delayed whole-body scintigrams were obtained approximately 3-4 hours after intravenous injection of radiotracer. Anterior and posterior views were acquired from vertex to feet. Additional left and right oblique views of the pelvis were obtained. COMPARISON: [facility] [place], [place], XR PELVIS WITH LATERAL HIP LEFT, 03/29/2023, 8:50. FINDINGS: Radiotracer excretion is seen in the urinary system. Scattered degenerative changes seen at the base of the thumb, right greater than left upper extremities, and bilateral lower extremities. Knee arthroplasty changes. Spine degenerative changes are also suspected to be present, particularly focal around L4-L5. IMPRESSION: Scattered suspected degenerative changes in the upper and lower extremities and spine, most focally at L4-L5. No pathologic asymmetric uptake of the left hip. Consider MRI to further evaluate the above findings if there is sufficient clinical concern. Dictated by: Kashif Fuentes M.D. on 05/08/2023 at 16:03 Approved by: Kashif Fuentes M.D. on 05/08/2023 at 16:07
== END ==
PROVIDERS: PCP Internal Medicine; Referring Provider Orthopaedic Surgery; Visit Provider Orthopaedic Surgery
DX: M16.12 Unilateral primary osteoarthritis, left hip (principal)
CPT/HCPCS: 78306; A9503

== ENCOUNTER → 2023-12-19 11:37 | Outpatient (CLI) | payer MEDICARE, OTHER, SELFPAY ==
[2023-12-19 12:48] LABS: Aspartate Aminotransferase 32 IU/L (17-59); BUN Creatinine Ratio 25.3 (6-22); Blood Urea Nitrogen 21 mg/dL (9-20); Calcium 9.8 mg/dL (8.4-10.2); Carbon Dioxide 29 mmol/L (22-32); Chloride 106 mmol/L (98-107); Cholesterol 184 mg/dL (140-199); Estimated Glomerular Filt Rate > 60 mL/min (>60); Glucose 76 mg/dL (80-110); HDL Cholesterol 72 mg/dL (40-60); HEMOLYSIS < 15 (0-50); LDL Cholesterol Calculated 75 mg/dL (<100); Potassium 4.8 mmol/L (3.4-5.1); Sodium 138 mmol/L (137-145); Triglycerides 184 mg/dL (35-150)
[2023-12-19 13:14] LABS: Prostate Specific Antigen 2.06 ng/mL (0.10-4.00)
== END ==
PROVIDERS: PCP Internal Medicine; Referring Provider Internal Medicine; Visit Provider Internal Medicine
DX: E78.2 Mixed hyperlipidemia (principal); N40.1 Benign prostatic hyperplasia with lower urinary tract symptoms; I45.9 Conduction disorder, unspecified
CPT/HCPCS: 36415; 80048; 80061; 84153; 84450

== ENCOUNTER 2024-02-29 13:00 | Outpatient (RCR) | payer MEDICARE, OTHER, SELFPAY ==
--- NOTE | 2024-01-22 16:00 | PT.OPPOC ---
Physical, Occupational & Speech Therapy At [facility] Current Diagnoses Other shoulder lesions, right shoulder (01/22/24) Abnormal posture (01/22/24) Weakness (01/22/24) Visit Care Team Role Provider Type Geoff Morrissey MD Attending Provider Physician Family Provider Primary Care Provider Referring Provider Specialty: Internal Medicine Address: [address] [place] [address], [facility] Email: [email or web address] Plan Of Care PT-OP-T Assessment and Plan Start: 01/22/24 15:18 Freq: Status: Active Protocol: Document 01/22/24 16:00 SAK (Rec: 01/22/24 16:25 SAK [id number]) Physical Therapy Assessment Rehab Potential Rehabilitation Potential Good Evaluation Complexity Number of Personal Factors/Comorbidities 1-2 Number of Body Systems Impaired 3 Clinical Presentation at Evaluation Evolving Impairments Impairments Pain,Posture,Strength Goals Four Impairment impairments in ROM and strength right shoulder Short Term Goal (STG) Patient to be instructed in progressive individualized HEP for purposes of ROM and strengthening right shoulder to address impairments STG Duration 02/21/24 Cable Respooler Goal (LTG) Patient to be independent and compliant with HEP and demonstrate 5/5 muscle strength right shoulder to allow him to have full function of right shoulder LTG Duration 04/22/24 Three Impairment posture dysfunction Short Term Goal (STG) Patient to be instructed in neutral posture and importance for shoulder biomechanics, instructed in postural correction exercises, and perform self assessment of habitual postures and movements that may contribute to his pain STG Duration 02/21/24 Cable Respooler Goal (LTG) Patient to demonstrate good understanding of postural correction and modification of habitual postures and movements that may contribute to his pain LTG Duration 04/22/24 Two Impairment Quickdash UE disability index score 16% Short Term Goal (STG) Decrease Quickdash score to no greater than 10% as measure of improved activity tolerance and shoulder function STG Duration 02/21/24 Cable Respooler Goal (LTG) Decrease Quickdash score to no greater than 5% as measure of improved activity tolerance and shoulder function LTG Duration 04/22/24 One Impairment Functional impairments Impairment unable to reach overhead, behind his back, lift objects, or play golf due to right shoulder pain Half-Way Goal (LTG) Patient will be able to reach overhead, behind his back, lift objects, and play golf without pain LTG Duration 04/22/24 Assessment Summary Assessment Patient presents to PT with chronic function-limiting pain right shoulder of gradual onset with no known injury. No numbness or tingling. Evaluation reveals postural impairment, muscle imbalances which appear to be contributory with positive impingement signs and symptoms . Feel habitual body positioning and movement contributory. Feel he would benefit from PT to improve his posture, ROM, strength and function of his right shoulder through therapeutic exercise, patient education, manual therapy and modalities PRN. POC was discussed and patient was in agreement. Physical Therapy Plan Frequency and Duration Frequency of Treatment 2x/Week Duration of treatment (weeks) 12 Plan of Care Start Date 01/22/24 Plan of Care End Date 04/22/24 Therapeutic Interventions Therapeutic Interventions Home Exercise Program,Joint Mobilizations,Manual Therapy, Patient/Caregiver Education, Self-Care/Home Management,Soft Tissue Mobilization,Taping, Therapeutic Activities, Therapeutic Exercises Modalities Cold Pack/Ice Massage,Electric Stimulation,Hot Packs, Infrared Therapy,Iontophoresis ,Ultrasound Next Visit Focus/Plan Next Note Type Treatment Note Next Visit Plan Review HEP, progression of ther ex for right shoulder ROM and strengthening, postural correction. Discuss patient self assessment of habitual positioning and movement. Modalities and manual therapy PRN. Plan of Care Dates Plan of Care Start Date 01/22/24 Plan of Care End Date 04/22/24 Electronically Signed by: Fannie Sanford PT 01/23/24 2040 If you are in agreement with this Plan of Care, please return a signed and dated copy. I have reviewed this Plan of Care and certify that the skilled therapy services above are required to meet the patient?s needs. Physician Signature Date Printed Name and Credentials Clinical Instructor Signature Printed Name and Credentials
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
== END 2024-08-14 14:53 | disposition home or self-care (01) ==
LOC: PHYS 13:00
PROVIDERS: Family Provider Internal Medicine; PCP Internal Medicine; Referring Provider Internal Medicine; Visit Provider Internal Medicine
DX: M75.81 Other shoulder lesions, right shoulder (principal); R29.3 Abnormal posture; R53.1 Weakness
CPT/HCPCS: 97110; 97140; 97162; 97535

== ENCOUNTER → 2025-01-09 08:06 | Outpatient (CLI) | payer MEDICARE, OTHER, SELFPAY ==
[2025-01-09 09:20] LABS: Aspartate Aminotransferase 46 IU/L (17-59); BUN Creatinine Ratio 22.5 (6-22); Blood Urea Nitrogen 20 mg/dL (9-20); Calcium 9.2 mg/dL (8.4-10.2); Carbon Dioxide 28 mmol/L (22-32); Chloride 104 mmol/L (98-107); Cholesterol 193 mg/dL (140-199); Estimated Glomerular Filt Rate > 60 mL/min (>60); Glucose 118 mg/dL (80-110); HDL Cholesterol 72 mg/dL (40-60); HEMOLYSIS < 15 (0-50); LDL Cholesterol Calculated 97 mg/dL (<100); Potassium 4.5 mmol/L (3.4-5.1); Sodium 139 mmol/L (137-145); Triglycerides 121 mg/dL (35-150)
[2025-01-09 09:49] LABS: Prostate Specific Antigen 2.14 ng/mL (0.10-4.00)
== END ==
PROVIDERS: Family Provider Internal Medicine; PCP Internal Medicine; Referring Provider Internal Medicine; Visit Provider Internal Medicine
DX: E78.2 Mixed hyperlipidemia (principal); I45.9 Conduction disorder, unspecified; N40.1 Benign prostatic hyperplasia with lower urinary tract symptoms
CPT/HCPCS: 36415; 80048; 80061; 84153; 84450

== ENCOUNTER → 2025-04-21 09:44 | Outpatient (CLI) | payer MEDICARE, OTHER, SELFPAY ==
[2025-04-21 10:49] LABS: Blood Urea Nitrogen 22 mg/dL (9-20); Calcium 9.3 mg/dL (8.4-10.2); Carbon Dioxide 23 mmol/L (22-32); Chloride 105 mmol/L (98-107); Estimated Glomerular Filt Rate > 60 mL/min (>60); Glucose 147 mg/dL (70-99); HEMOLYSIS < 15 (0-50); Potassium 4.5 mmol/L (3.4-5.1); Sodium 137 mmol/L (137-145)
[2025-04-21 10:54] LABS: Add Manual Diff / Slide Review NO; Hematocrit 45.7 % (41-53); Hemoglobin 15.7 g/dL (13.5-17.5); Lymphocytes Absolute Auto 2700 /uL (1100-4500); Mean Corpuscular HGB Conc 34.3 % (30-36); Mean Corpuscular Hemoglobin 31.2 PG (26-34); Mean Corpuscular Volume 90.9 fL (80-100)
== END ==
PROVIDERS: Family Provider Internal Medicine; PCP Internal Medicine; Referring Provider Internal Medicine; Visit Provider Internal Medicine Cardiovascular Disease
DX: Z95.0 Presence of cardiac pacemaker (principal)
CPT/HCPCS: 36415; 80048; 85025